=== PATIENT | female | born 1990 | race Caucasian/White ===

== ENCOUNTER 2020-05-01 08:39 | Emergency (ER) | payer MEDICAID, SELFPAY ==
[2020-05-01 08:40] VITALS: BP 139/95; PULSE 116; RESP 18; TEMP 36.3; O2SAT 98; BMI 44.1
--- NOTE | 2020-05-01 08:48 | ED.VIS.BACK ---
History of Present Illness Chief Complaint: Back Informant: Patient Onset: Days - 7 to 8 days ago Context: - - Does not recall Chronic pain exacerbated by: Nothing Injury: - - No history of injury Timing: Continuous Quality: Dull, Aching Location: Lumbar Current Severity: Mild Maximum Severity: Moderate Worsened by: improves with: Movement, Ambulation, Bending - Specially left to right and flexion, Lifting. worse with: Night time pain Relieved by: Sitting Associated Symptoms: - - No bowel bladder dysfunction. No saddle paresthesia or anesthesia. No radicular pain. No foot drop. No buckling of knees going up or down steps. Narrative: Patient is a heavyset 30-year-old woman who presents with central back pain that is worse with bending the right and left. There is no symptoms to concern for cauda equina. There is no red flags to suggest epidural abscess. Patient states her mother recommended she come in because of concern for degenerative disc disease. Prior similar symptoms: No Recent Illness/Hospitalization: No - Past Medical History (1) No significant past medical history Status: Acute Past Medical History - Allergies and Home Meds Allergies/Adverse Reactions: Allergies No Known Allergies Allergy (Verified 05/01/20 08:40) Primary Care Physician: Lico Tran MD [Primary Care Provider] - Surgical History: noncontributory Lives: With Family Smoking Status: Current every day smoker Alcohol: Rare Drugs: None Review of Systems General: Denies: Chills, Fever, Malaise, Subjective, Sweats, Weight loss Respiratory: Denies: Dyspnea, Cough, Dyspnea on exertion Gastrointestinal: Denies: Abdominal pain, Nausea, Vomiting, Diarrhea, Melena, Hematochezia Genitourinary: Denies: Dysuria, Hematuria, Frequency Musculoskeletal: Reports: Back pain. Denies: Myalgias, Arthralgias, Neck pain, Swelling, Extremity Pain, -, - Skin: Denies: Rash, Wounds Neurological: Denies: Weakness, Parasthesia, Numbness Hematologic: Denies: Easy bruising, Easy bleeding Physical Exam Vital Signs/Narrative: Vital Signs Temp Pulse Resp BP Pulse Ox 05/01/20 08:40 97.3 F L 116 H 18 139/95 H 98 Inital Vital Signs reviewed: Yes General: Well nourished, Well developed, Obese Head: Normocephalic, Atraumatic Eyes: Perrl, EOMI ENT: Moist mucous membranes, No rhinorrhea Neck: Supple, Nontender, No lymphadenopathy, No JVD Cardiovascular: Regular rate, Regular rhythm, No murmurs, Normal S1, Normal S2 Respiratory: No distress, CTA bilaterally, Chest nontender Abdomen: Soft, Nontender, Nondistended, Normal bowel sounds, No masses Back: Normal Inspection, Nontender Extremeties: Nontender, No edema, - - PM PT pulse are palpable. Skin: Normal color, No rash, No Trauma. Negative for: Cyanosis, Diaphoresis, Jaundice, Pallor, Rash, Trauma Neuro: Alert, Oriented, Normal Strength, Normal Sensation, Normal DTR, Normal Gait, - - Right leg test is negative both sides. Patient able to ambulate without foot drop. She is able to walk on heels and toes. He is able to perform 1 legged squat. There is no altered sensation over L4, L5 or S1 dermatome. Reflexes: Right Patellar, Right Achilles, Left Patellar, Left Achilles. Negative for: Right Clonus, Right Babinski, Left Clonus, Left Babinski Psychological: Normal affect Diagnostic/Tx/Re-eval - Medical Decision Making Patient has musculoskeletal low back pain. This may represent muscle strain, degenerative disc disease. Treatment is ice and anti-inflammatories that she has no contraindication. ED Disposition - Plan for ED Patient: Disposition: Home or Assisted Living Diagnosis: Acute low back pain without sciatica Instructions: ED Back Pain Acute or Chronic Referrals: Lico Tran MD [Primary Care Provider] - 1 Week if not improving Additional Instructions: Take 800 mg ibuprofen every 8 hours not every 6 hours. Apply ice 20 to 30 minutes at a time 6-8 times a day. Heat may make your pain worse.
== END 2020-05-01 08:58 | disposition home or self-care (01) ==
PROVIDERS: Emergency Provider Emergency Medicine
DX: M54.5 Low back pain (principal); E66.9 Obesity, unspecified; Z68.41 Body mass index [BMI] 40.0-44.9, adult; F17.200 Nicotine dependence, unspecified, uncomplicated
CPT/HCPCS: 99282